=== PATIENT | female | born 1960 | race Two or more races ===

== ENCOUNTER → 2024-04-28 | Outpatient (CLI) | payer MEDICARE, SELFPAY ==
--- NOTE | 2024-04-28 09:15 | XR_ITS ---
Examination: Abdomen sonogram, Limited Date and time of exam: April 28, 2024 0920 hours INDICATIONS: Onset left upper abdominal pain abdominal swelling beginning 8 months ago Technique: Real-time hodges scale transabdominal sonographic images of the upper abdomen obtained. Findings: Absent gallbladder Normal common bile duct 0.3 cm Pancreatic head 2.3 cm Liver 15.8 cm fatty infiltration smooth contour no focal liver lesions Normal hepatopedal portal venous flow Patent IVC IMPRESSION: Absent gallbladder Normal common bile duct Liver normal size fatty liver no focal liver lesions
[2024-04-28 10:12] LABS: Misc Send Out* See Sep Rpt
[2024-04-28 18:13] LABS: RA Screen Negative (Negative)
[2024-05-06 11:17] LABS: Sjogren's antibody (SS-A) <1.0 NEG AI (<1.0 NEGATIVE); Sm Antibody <1.0 NEG AI (<1.0 NEGATIVE)
[2024-05-10 06:50] LABS: ANA Screen, IFA NEGATIVE (NEGATIVE); Actin Antibody (IgG)* 49 U; Complement Component C3* 145 mg/dL (83-193); Complement Component C4c* 26 mg/dL (15-57); DNA (ds) Antibody* <1 IU/mL; Gastric Parietal Cell Ab* <20.0 U; Mitochondrial Ab NEGATIVE (NEGATIVE); Myocardial Ab, IF NEGATIVE (NEGATIVE); Scl-70 Antibody* <1.0 NEG AI (<1.0 NEGATIVE); Sjogren's Antibody (SS-B) <1.0 NEG AI (<1.0 NEGATIVE); Sm/RNP Antibody <1.0 NEG AI (<1.0 NEGATIVE); Striated Muscle Ab NEGATIVE (NEGATIVE); Thyroid Peroxidase Antibodies* 259 IU/mL (<9)
== END | disposition home or self-care (01) ==
LOC: CDIM 08:49 → COPL 09:39
PROVIDERS: PCP Nurse Practitioner Family; Referring Provider Specialist; Visit Provider Radiology Diagnostic Radiology
DX: K76.0 Fatty (change of) liver, not elsewhere classified (principal); Z90.49 Acquired absence of other specified parts of digestive tract; R76.0 Raised antibody titer; R10.13 Epigastric pain; R10.11 Right upper quadrant pain; R10.12 Left upper quadrant pain; R53.83 Other fatigue
CPT/HCPCS: 36415; 76705; 83516; 86015; 86038; 86160; 86225; 86231; 86235; 86255; 86376; 86430

== ENCOUNTER → 2024-05-12 | Outpatient (CLI) | payer MEDICARE, SELFPAY ==
--- NOTE | 2024-05-12 09:56 | XR_ITS ---
Examination: Modified barium swallow Video esophagram Exam date and time: May 12, 2024 1021 hours INDICATIONS: Difficulty swallowing 2 years TECHNIQUE AND FINDINGS: Multiple barium mixtures, thin, pudding administered 57 spot fluoroscopic films soft tissue lateral to the neck with the patient swallowing Fluoroscopy 0.1 minute radiation dose 22.67 milligray Mild premature transfer No definite pharyngeal penetration or aspiration IMPRESSION: No pharyngeal penetration or aspiration
== END | disposition home or self-care (01) ==
LOC: SDIM 09:19
PROVIDERS: PCP Nurse Practitioner Family; Referring Provider Specialist; Visit Provider Specialist
DX: R14.0 Abdominal distension (gaseous) (principal)
CPT/HCPCS: 74230; A9270

== ENCOUNTER → 2024-06-17 | Outpatient (CLI) | payer MEDICARE, SELFPAY ==
--- NOTE | 2024-06-17 08:30 | XR_ITS ---
Examination: CT abdomen with intravenous contrast CT pelvis with intravenous contrast 2-D coronal reconstructions 2-D sagittal reconstructions Date and time of exam:June 17, 2024 1126 hours Comparison March 28, 2021 INDICATIONS: Abdominal pain left upper abdomen left lower abdomen beginning 3 years ago, history renal cystic disease, history cholelithiasis on CT examination March 28, 2021. CTDI: vol (mGy) 12.1 DLP: (mGycm) 647 Technique: Multiple axial sections of the abdomen and pelvis have been obtained. 64 slice high-resolution scanner used. 3 mm axial sections have been obtained, post intravenous injection 60 cc Isovue-370 with 30 cc Gastrografin administered 2-D sagittal, coronal reconstructions obtained. Low dose protocols were performed. One or more of the following dose reduction techniques were used; automated exposure control, adjustment of the mA and/or KV according to patient size, use of iterative reconstruction technique. Findings: No visualized liver or splenic lesion Fatty liver Absent gallbladder No pancreatic or adrenal mass No renal or ureteral calculi, no hydronephrosis Aorta normal size 20 mm fat-containing umbilical hernia Normal appendix No bowel obstruction Colonic diverticulosis, no diverticulitis No uterine or adnexal mass Urinary bladder intact Advanced degenerative disc disease L5-S1 IMPRESSION: Fatty liver No extrahepatic biliary tract dilatation No renal or ureteral calculi Normal appendix No bowel obstruction or diverticulitis No nonspecific colitis or enteritis pattern
[2024-06-17 09:03] LABS: Collection Type, Urine Clean Catch
[2024-06-17 09:21] LABS: Basophils % (Auto) 1 % (0-2.5); Eosinophils # (Auto) 0.2 Thou/mm3 (0.0-0.5); Eosinophils % (Auto) 5 % (0-10); Hematocrit 41.1 % (36.0-46.0); Hemoglobin 13.6 g/dL (12.0-16.0); Immature Granulocytes % (Auto) 0 % (0-0); Immature Granulocytes Auto 0.01 Thou/mm3 (0.00-0.00); Lymphocytes % (Auto) 27 % (10-50); Mean Corpuscular HGB Conc 33.1 g/dl (31.0-37.0); Mean Corpuscular Hemoglobin 28.5 pg (25.0-35.0); Mean Corpuscular Volume 86 fL (80-100); Monocytes # (Auto) 0.3 Thou/mm3 (0.0-0.8); Monocytes % (Auto) 8 % (0-12); Neutrophils # (Auto) 2.2 Thou/mm3 (1.8-7.7); Neutrophils % (Auto) 58 % (37-80); Nucleated Red Blood Cell % 0 /100 WBC (0); Platelet Count 241 Thou/mm3 (140-440); RDW Standard Deviation 47.7 fL (36.4-46.3); Red Blood Count 4.78 Miln/mm3 (4.00-5.20); White Blood Count 3.8 Thou/mm3 (3.6-11.0)
[2024-06-17 09:28] LABS: Bilirubin,Urine Negative (Negative); Blood,Urine Negative (Negative); Clarity,Urine Clear (Clear/Hazy); Color,Urine Lt-Yellow (Lt Yel-Yel); Glucose, Urine Negative (Negative); Ketones,Urine Negative (Negative); Leukocyte Esterase,Urine Negative (Negative); Nitrite,Urine Negative (Negative); PH,Urine 7.5 (5.0-7.0); Protein,Urine Negative (Neg - Trace); RBC,Urine 2 /hpf (0-3); Specific Gravity,Urine 1.019 (1.001-1.035); Squamous Epithelial Cell,Urine < 1 /hpf (0-5); Urobilinogen,Urine Negative mg/dL (0.0-1.0); WBC,Urine 1 /hpf (0-5)
[2024-06-17 09:40] LABS: Alanine Aminotransferase 22 U/L (10-49); Albumin, Serum 4.7 gm/dL (3.4-4.8); Albumin/Globulin Ratio 2.1 (1.2-2.2); Alkaline Phosphatase 65 U/L (46-116); Amylase 98 U/L (30-118); Anion Gap 5 (7-16); Aspartate Amino Transferase 18 U/L (0-34); BUN/Creatinine Ratio 17 Ratio (12-20); Bilirubin,Total 0.5 mg/dL (0.3-1.2); Blood Urea Nitrogen 12 mg/dL (9-23); Calcium 9.4 mg/dL (8.3-10.6); Calcium (Corrected) 9.4 mg/dL (8.5-10.1); Carbon Dioxide 28.4 mMol/L (20.0-31.0); Chloride 107 mMol/L (98-107); Creatinine (Component) 0.7 mg/dL (0.6-1.3); Globulin 2.2 gm/dL (2.3-3.5); Glucose 99 mg/dL (74-106); Lipase 27 U/L (12-53); Osmolality,Calculated 279 (275-295); Potassium 4.5 mMol/L (3.4-5.1); Sodium 140 mMol/L (136-145); Total Protein 6.9 gm/dL (5.7-8.2); eGFR > 60 See Note
== END | disposition home or self-care (01) ==
LOC: CDIM 08:21 → COPL 08:26
PROVIDERS: PCP Specialist; Referring Provider Specialist; Visit Provider Radiology Diagnostic Radiology
DX: K76.0 Fatty (change of) liver, not elsewhere classified (principal); R10.9 Unspecified abdominal pain
CPT/HCPCS: 36415; 74177; 80053; 81001; 82150; 83690; 85025; A4649; Q9963; Q9967

== ENCOUNTER → 2024-06-25 | Outpatient (CLI) | payer MEDICARE, MEDICAID, SELFPAY ==
--- NOTE | 2024-06-25 08:15 | XR_ITS ---
Examination: Breast ultrasound, unilateral, left complete Date and time of exam: June 25, 2024 0824 hours INDICATIONS: Left breast sonogram August 19, 2023 8:00 nodule 4 x 3 mm Technique: Real-time hodges scale ultrasonographic imaging performed left breast including all 4 quadrants as well as nipple retroareolar and axillary region. Findings: 1:00 cyst 2.1 x 2.1 cm 10:00 cyst 1.3 x 1.0 cm 10:00 cyst 9 x 8 mm Multiple additional cysts No solid nodules IMPRESSION: BI-RADS Category 2: Benign findings
--- NOTE | 2024-06-25 08:45 | XR_ITS ---
Examination: Diagnostic digital mammography, unilateral, left Computer aided detection 3-D breast Tomosynthesis, unilateral Date and time of exam: June 25, 2024 0843 hrs. Indications: Mammogram August 19, 2023 circumscribed oval masses retroareolar region right breast, circumscribed nodule 1:00 position left breast Technique: Nonmagnified MLO, CC views of the left breast have been obtained, reconstructed from 3-D Tomosynthesis images. R2 computer aided detection program utilized for evaluation of suspicious masses and/or abnormal calcifications. 3-D Tomosynthesis images obtained. Findings: Scattered areas of fibroglandular density 1:00 circumscribed nodule left breast corresponding to 1:00 cyst on left breast sonogram today with smaller cysts adjacent Impression: BI-RADS category 2: Benign findings Return to yearly follow-up mammography
== END | disposition home or self-care (01) ==
LOC: CDIM 08:08
PROVIDERS: Referring Provider Nurse Practitioner Family; Visit Provider Nurse Practitioner Family
DX: R92.322 Mammographic fibroglandular density, left breast (principal); N60.02 Solitary cyst of left breast
CPT/HCPCS: 76641; 77061; 77065; G0279